=== PATIENT | male | born 1995 | race Two or more races ===

== ENCOUNTER 2022-12-19 13:20 | Emergency (ER) | payer OTHER ==
[2022-12-19 13:59] VITALS: BP 107/69; PULSE 77; RESP 20; TEMP 98.2; BMI 19.1
== END 2022-12-19 14:57 | disposition home or self-care (01) ==
LOC: FER 13:20
PROC: 2W3LX1Z Immobilization of Right Lower Extremity using Splint (ICD-10-PCS; principal; 2022-12-19)
DX: S93.401D Sprain of unspecified ligament of right ankle, subsequent encounter (principal); X50.0XXD Overexertion from strenuous movement or load, subsequent encounter; W21.05XD Struck by basketball, subsequent encounter; Y92.310 Basketball court as the place of occurrence of the external cause
CPT/HCPCS: 73610-TC-RT-FY; 73630-TC-RT-FY; 99283-25